=== PATIENT | male | born 1990 | race African-American/Black ===

== ENCOUNTER 2019-05-19 21:21 | Emergency (ER) | payer SELFPAY ==
[2019-05-19] MEDS ORDERED: HYDROCODONE/APAP 5/325 MG TAB ONE (22:13)
[2019-05-19] MEDS ORDERED: IBUPROFEN 200 MG TAB PO ONE (22:13)
[2019-05-19] MEDS ORDERED: IBUPROFEN 400 MG TAB ONE (22:13)
--- NOTE | 2019-05-19 22:26 | RAD REPORT ---
EXAM DESCRIPTION: RAD - Knee Left 3 View - 05/19/2019 10:18 pm CLINICAL HISTORY: PAIN COMPARISON: No comparisons FINDINGS: No fracture or joint effusion is seen.
[2019-05-19] MEDS ORDERED: CEPHALEXIN 250 MG CAP ONE (23:11)
[2019-05-19] MEDS ORDERED: SMZ./TMP. 800/160 MG TABLET ONE (23:12)
--- NOTE | 2019-05-19 23:38 | EDPHYS ---
Physician Documentation [facility] Name: Bryan Tejeda Jr Age: 29 yrs Sex: Male : 1990 Arrival Date: 05/19/2019 Time: 21:25 Bed 23 Private MD: ED Physician Jose Ford HPI: 05/19 22:48 This 29 yrs old Black Male presents to ER via Wheelchair with complaints of Knee Injury.pm1 22:48 The patient presents with an abrasion, pain. The complaints affect the left knee. pm1 Context: The problem was sustained outdoors, resulted from the patient tripping, the patient can fully bear weight, the patient is able to ambulate. Onset: The symptoms/episode began/occurred yesterday. Modifying factors: The symptoms are alleviated by remaining still, the symptoms are aggravated by bending knee. Associated signs and symptoms: Pertinent negatives calf tenderness, fever. Treatment prior to arrival includes: no previous treatment. Severity of symptoms: in the emergency department the symptoms are actually worse. The patient has not recently seen a physician, and does not have an established primary care provider. Patient was running and tripped on gravel with resulting abrasions to bilateral knees and palms of hands. Patient presenting to ER today with complaints of left knee pain. Historical: - Allergies: 22:00 No Known Allergies; cc3 - Home Meds: 22:00 None [Active]; cc3 - PMHx: 22:00 None; cc3 - PSHx: 22:00 None; cc3 - Immunization history:: Adult Immunizations up to date. - Social history:: Smoking status: Patient uses tobacco products, denies chronic smoking, but will smoke occasionally. - Ebola Screening: : No symptoms or risks identified at this time. ROS: 22:48 Constitutional: Negative for fever, chills, and weight loss, Neck: Negative for injury, pm1 pain, and swelling, Cardiovascular: Negative for chest pain, palpitations, and edema, Respiratory: Negative for shortness of breath, cough, wheezing, and pleuritic chest pain, Abdomen/GI: Negative for abdominal pain, nausea, vomiting, diarrhea, and constipation, Back: Negative for injury and pain. 22:48 MS/extremity: Positive for pain, of the left knee, Negative for decreased range of motion, deformity. 22:48 Skin: Positive for abrasion(s), of the left knee, right knee, and palms of both hands. Exam: 22:48 Constitutional: This is a well developed, well nourished patient who is awake, alert, pm1 and in no acute distress. Head/Face: Normocephalic, atraumatic. Neck: Trachea midline, no thyromegaly or masses palpated, and no cervical lymphadenopathy. Supple, full range of motion without nuchal rigidity, or vertebral point tenderness. No Meningismus. Chest/axilla: Normal chest wall appearance and motion. Nontender with no deformity. No lesions are appreciated. Cardiovascular: Regular rate and rhythm with a normal S1 and S2. No gallops, murmurs, or rubs. Normal PMI, no JVD. No pulse deficits. Respiratory: Lungs have equal breath sounds bilaterally, clear to auscultation and percussion. No rales, rhonchi or wheezes noted. No increased work of breathing, no retractions or nasal flaring. Back: No spinal tenderness. No costovertebral tenderness. Full range of motion. 22:48 Musculoskeletal/extremity: Extremities: noted in the left knee: There is no evidence of decreased ROM, deformity, Full passive range of motion. Patient with pain to lower lateral aspec of knee with varus and valgus stress test. Negative drawer test. 22:48 Skin: Appearance: normal except for affected area, injury, abrasion(s), moderate sized abrasion noted, of the left knee. Vital Signs: 21:59 BP 114 / 71 LA (auto/reg); Pulse 63; Resp 18 S; Temp 98.5(O); Pulse Ox 99% on R/A; jp3 Weight 92.99 kg; Height 5 ft. 9 in. (175.26 cm); Pain 10/10; 23:50 BP 112 / 77; Pulse 65; Resp 17 S; Pulse Ox 99% on R/A; cc3 21:59 Body Mass Index 30.27 (92.99 kg, 175.26 cm) 3 MDM: 21:53 Patient medically screened. pm1 23:36 Data reviewed: vital signs. Data interpreted: Pulse oximetry: on room air is 99 %. pm1 Interpretation: normal. Counseling: I had a detailed discussion with the patient and/or guardian regarding: the historical points, exam findings, and any diagnostic results supporting the discharge/admit diagnosis, radiology results, the need for outpatient follow up, a orthopedic surgeon, to return to the emergency department if symptoms worsen or persist or if there are any questions or concerns that arise at home. 23:59 ED course: Patient wants to go home with lisa wrap over knee immobilizer. pm1 05/20 00:00 ED course: Explained to patient impression is mild skin infection from abrasions. Treat pm1 with abx therapy and if symptoms persist post resolution of skin infection, may need evaluation with MRI for ligament injury. 05/19 21:58 Order name: Knee Left 3 View XRAY; Complete Time: 22:31 pm1 05/19 23:05 Order name: Wound Care; Complete Time: 23:56 pm1 05/19 23:05 Order name: Wound dressing; Complete Time: 23:56 pm1 Administered Medications: 05/19 22:15 Drug: [place] 5 mg-325 mg 1 tabs {Note: RASS 0.} Route: PO; [facility] 23:00 Follow up: Response: No adverse reaction; Pain is decreased; RASS: Alert and Calm (0) [facility] 22:15 Drug: Ibuprofen 600 mg Route: PO; 3 23:00 Follow up: Response: No adverse reaction; Pain is decreased; RASS: Alert and Calm (0) [facility] 23:10 Drug: Bactrim (160 mg-800 mg (DS) 1 tablet Route: PO; [facility] 05/20 00:00 Follow up: Response: No adverse reaction [facility] 05/19 23:10 Drug: KeFLEX 500 mg Route: PO; [facility] 05/20 00:00 Follow up: Response: No adverse reaction [facility] Disposition: 05/19/19 23:37 Discharged to Home. Impression: Pain in left knee, Abrasion, left knee. - Condition is Stable. - Discharge Instructions: Abrasion, Elastic Bandage and RICE, Crutch Use, Knee Pain. - Prescriptions for Keflex 500 mg Oral Capsule - take 1 capsule by ORAL route every 12 hours for 10 days; 20 capsule. Tylenol- Codeine #3 300-30 mg Oral Tablet - take 2 tablets by ORAL route every 6 hours As needed; 20 tablet. Bactrim DS 800- 160 mg Oral Tablet - take 1 tablet by ORAL route every 12 hours for 10 days; 20 tablet. - Medication Reconciliation Form, Thank You Letter, Antibiotic Education, Prescription Opioid Use form. - Follow up: Emergency Department; When: As needed; Reason: Worsening of condition. Follow up: Harley Lay MD; When: 2 - 3 days; Reason: Recheck today's complaints, Continuance of care, Re-evaluation by your physician. - Problem is new. - Symptoms have improved. Addendum: 05/22/2019 03:27 Co-signature as Attending Physician, Jose Ford MD. g s Signatures: Dispatcher [employer] EDMS Gabriel Butler, HAND CLOTH CUTTER HAND CLOTH CUTTER pm1 Jose Ford MD MD Altagracia Grier cc3 Corrections: (The following items were deleted from the chart) 05/20 00:01 05/19 23:37 05/19/2019 23:37 Discharged to Home. Impression: Pain in left knee; cc3 Abrasion, left knee. Condition is Stable. Forms are Medication Reconciliation Form, Thank You Letter, Antibiotic Education, Prescription Opioid Use. Follow up: Emergency Department; When: As needed; Reason: Worsening of condition. Follow up: Harley Lay; When: 2 - 3 days; Reason: Recheck today's complaints, Continuance of care, Re-evaluation by your physician. Problem is new. Symptoms have improved. pm1
--- NOTE | 2019-05-19 23:38 | ER ---
Nurse's Notes [facility] Name: Bryan Tejeda Jr Age: 29 yrs Sex: Male : 1990 Arrival Date: 05/19/2019 Time: 21:25 Bed 23 Private MD: Diagnosis: Pain in left knee;Abrasion, left knee Presentation: 05/19 22:00 Presenting complaint: Patient states: "I was playing water balloon fight yesterday cc3 afternoon and I hit both my knees on the ground but the left knee hurts more and more swollen than the right knee". Patient sustained superficial abrasions on bilateral knees. Transition of care: patient was not received from another setting of care. Onset of symptoms was May 19, 2019. Risk Assessment: Do you want to hurt yourself or someone else? Patient reports no desire to harm self or others. Initial Sepsis Screen: Does the patient meet any 2 criteria? No. Patient's initial sepsis screen is negative. Does the patient have a suspected source of infection? No. Patient's initial sepsis screen is negative. Care prior to arrival: None. 22:00 Method Of Arrival: Wheelchair cc3 22:00 Acuity: OMAR 3 cc3 Triage Assessment: 22:00 General: Appears in no apparent distress. uncomfortable, Behavior is calm, cooperative, cc3 appropriate for age. Pain: Complains of pain in bilateral knees but mostly on the left Quality of pain is described as aching. EENT: No signs and/or symptoms were reported regarding the EENT system. Neuro: Level of Consciousness is awake, alert, obeys commands, Oriented to person, place, time, situation, Appropriate for age. Cardiovascular: Denies chest pain, Capillary refill < 3 seconds Patient's skin is warm and dry. Respiratory: Airway is patent Respiratory effort is even, unlabored, Respiratory pattern is regular, symmetrical. GI: Abdomen is round non-distended. : No signs and/or symptoms were reported regarding the genitourinary system. Derm: Skin is intact, is healthy with good turgor, Skin is normal, black, abrasion on bilateral knees, swelling on left knee. Musculoskeletal: Circulation, motion, and sensation intact. Range of motion: limited in left knee Swelling present in left knee. Injury Description: Abrasion sustained to bilateral knees was sustained yesterday. Historical: - Allergies: 22:00 No Known Allergies; cc3 - Home Meds: 22:00 None [Active]; cc3 - PMHx: 22:00 None; cc3 - PSHx: 22:00 None; cc3 - Immunization history:: Adult Immunizations up to date. - Social history:: Smoking status: Patient uses tobacco products, denies chronic smoking, but will smoke occasionally. - Ebola Screening: : No symptoms or risks identified at this time. Screenin:00 Abuse screen: Denies threats or abuse. Denies injuries from another. Nutritional cc3 screening: No deficits noted. Tuberculosis screening: No symptoms or risk factors identified. Fall Risk Ambulatory Aid- None/Bed Rest/Nurse Assist (0 pts). Gait- Normal/Bed Rest/Wheelchair (0 pts) Mental Status- Oriented to own ability (0 pts). Assessment: 22:00 General: see triage assessment. cc3 23:18 Reassessment: Patient appears in no apparent distress at this time. Patient and/or cc3 family updated on plan of care and expected duration. Pain level reassessed. Patient is alert, oriented x 3, equal unlabored respirations, skin warm/dry/pink. 05/20 00:00 Reassessment: Patient appears in no apparent distress at this time. Patient and/or cc3 family updated on plan of care and expected duration. Pain level reassessed. Patient is alert, oriented x 3, equal unlabored respirations, skin warm/dry/pink. LINE CLEARANCE FOREMAN Luke discharged the patient home with prescriptions given. No IV cannula in situ. Patient left ER vitally stable and ambulatory on his own pair of crutches with his relative. No valuables left in the patient's room. Patient denies pain at this time. Patient states feeling better. Patient states symptoms have improved. Vital Signs: 05/19 21:59 BP 114 / 71 LA (auto/reg); Pulse 63; Resp 18 S; Temp 98.5(O); Pulse Ox 99% on R/A; jp3 Weight 92.99 kg; Height 5 ft. 9 in. (175.26 cm); Pain 10/10; 23:50 BP 112 / 77; Pulse 65; Resp 17 S; Pulse Ox 99% on R/A; cc3 21:59 Body Mass Index 30.27 (92.99 kg, 175.26 cm) 3 ED Course: 21:25 Patient arrived in ED. cl3 21:47 aGbriel Butler NP is PHCP. pm1 21:47 Jose Ford MD is Attending Physician. pm1 22:00 Bed in low position. Call light in reach. Side rails up X 1. Warm blanket given. Verbal jp3 reassurance given. PT wounded leg was elevated following assisting PT into bed. Pulse ox on. NIBP on. 22:00 Arm band placed on right wrist. Patient notified of wait time. cc3 22:01 Patient maintains SpO2 saturation greater than 95% on room air. jp3 22:08 Altagracia Grier is Primary Nurse. cc3 22:17 Knee Left 3 View XRAY In Process Unspecified. EDMS 22:18 Triage completed. cc3 23:37 Harley Lay MD is Referral Physician. pm1 05/20 00:00 No provider procedures requiring assistance completed. Patient did not have IV access cc3 during this emergency room visit. 00:09 Dressings: non-adherent dressing x 2 left knee. Albert wrap to left knee. Wound care: to jp3 abrasion, located on left knee was cleaned with Hibiclens, debrided using Betadine scrub, irrigated with normal saline, dressed with Neosporin. Administered Medications: 05/19 22:15 Drug: [place] 5 mg-325 mg 1 tabs {Note: RASS 0.} Route: PO; cc3 23:00 Follow up: Response: No adverse reaction; Pain is decreased; RASS: Alert and Calm (0) cc3 22:15 Drug: Ibuprofen 600 mg Route: PO; cc3 23:00 Follow up: Response: No adverse reaction; Pain is decreased; RASS: Alert and Calm (0) cc3 23:10 Drug: Bactrim (160 mg-800 mg (DS) 1 tablet Route: PO; cc3 05/20 00:00 Follow up: Response: No adverse reaction cc3 05/19 23:10 Drug: KeFLEX 500 mg Route: PO; cc3 05/20 00:00 Follow up: Response: No adverse reaction cc3 Outcome: 05/19 23:37 Discharge ordered by . pm1 05/20 00:00 Discharged to home ambulatory, with crutches, with family. cc3 Condition: stable Discharge instructions given to patient, Instructed on discharge instructions, follow up and referral plans. medication usage, Demonstrated understanding of instructions, follow-up care, medications, Prescriptions given X 3. 00:01 Patient left the ED. cc3 Signatures: Dispatcher [employer] EDMS Gabriel Butler, LINE CLEARANCE FOREMAN LINE CLEARANCE FOREMAN pm1 Gerardo Couch jp3 Altagracia Grier cc3 Yisel Grande cl3 Corrections: (The following items were deleted from the chart) 05/19 22:26 22:00 Presenting complaint: Patient states: "I was playing water balloon fight and I cc3 hit both my knees on the ground but the left knee hurts more and more swollen than the right knee". Patient sustained superficial abrasions on bilateral knees. cc3
== END 2019-05-20 00:01 | disposition home or self-care (01) ==
LOC: ER 21:21
DX: S80.212A Abrasion, left knee, initial encounter (principal); M25.562 Pain in left knee; W01.0XXA Fall on same level from slipping, tripping and stumbling without subsequent striking against object, initial encounter; Y93.02 Activity, running
CPT/HCPCS: 99284

== ENCOUNTER 2020-06-28 23:42 | Emergency (ER) | payer SELFPAY ==
[2020-06-29] MEDS ORDERED: METOCLOPRAMIDE 10 MG/2mL INJ ONE (00:26)
[2020-06-29] MEDS ORDERED: NA CHLORIDE 0.9% 1,000 ML ONE (00:26)
[2020-06-29] MEDS ORDERED: DIPHENHYDRAMINE 50 MG/ML VIAL ONE (00:26)
[2020-06-29 00:44] LABS: Basophils % 0.2 % (0-1.3); Hematocrit 36.5 % (39.6-49.0); Lymphocytes % 31.3 % (15.3-44.8); MPV 9.9 fL (7.6-11.3); RBC Red Blood Cell Count 4.17 M/uL (4.33-5.43)
[2020-06-29 00:45] LABS: Protime INR 1.01
[2020-06-29] MEDS ORDERED: LORazepam 2 MG/ML VIAL ONE (00:52)
[2020-06-29 00:59] LABS: ALT/SGPT 21 U/L (12-78); AST/SGOT 14 U/L (15-37); Albumin 3.7 g/dL (3.4-5.0); Alkaline Phosphatase 55 U/L (45-117); BUN Blood Urea Nitrogen 14 mg/dL (7-18); Bicarbonate 24 mmol/L (21-32); Bilirubin Direct < 0.1 mg/dL (0-0.2); Bilirubin Total 0.2 mg/dL (0.2-1.0); Glucose Level 106 mg/dL (74-106); Potassium 3.4 mmol/L (3.5-5.1); Protein, Total 7.1 g/dL (6.4-8.2); Sodium Level 141 mmol/L (136-145)
--- NOTE | 2020-06-29 02:25 | EDPHYS ---
Physician Documentation [facility] Name: Bryan Tejeda Jr Age: 30 yrs Sex: Male : 1990 Arrival Date: 06/28/2020 Time: 23:45 Bed 7 Private MD: ED Physician Amaury Blas HPI: 06/29 00:15 This 30 yrs old Black Male presents to ER via Ambulatory with complaints of Headache, mh7 Worst Ever, Dizziness, Lightheaded. 00:16 The patient complains of pain to the top of head. The patient describes the headache as mh7 constant, throbbing. Onset: The symptoms/episode began/occurred just prior to arrival, today. Associated signs and symptoms: Pertinent positives: dizziness, Photophobia Pertinent negatives: altered mental status, fever, malaise, nausea, neck stiffness, paresthesias, rash, sinus congestion, sinus tenderness, vision changes, vision loss, vomiting, weakness, vertigo. Severity of symptoms: At its worst the pain was severe, just prior to arrival, earlier today, the "worst in my life", in the emergency department the pain. 00:19 Severity of symptoms: in the emergency department the pain has improved, mildly. mh7 Headache History: The patient has had previous headaches and this one is less severe than previous episodes. The symptoms are alleviated by Darkened room, quiet, the symptoms are aggravated by lights, noise. The patient has experienced similar episodes in the past, chronically, 4-5 times per month for the two or more years. Historical: - Allergies: 06/28 23:56 No Known Allergies; bb - Home Meds: 23:56 None [Active]; bb - PMHx: 23:56 None; bb - PSHx: 23:56 None; bb - Immunization history:: Adult Immunizations up to date. - Social history:: Smoking status: Patient reports the use of cigarette tobacco products, cigars, Patient uses alcohol, occasionally. street drugs, marijuana. ROS: 06/29 00:19 Constitutional: Negative for fever, chills, and weight loss, Eyes: Negative for injury, mh7 pain, redness, and discharge, ENT: Negative for injury, pain, and discharge, Neck: Negative for injury, pain, and swelling, Cardiovascular: Negative for chest pain, palpitations, and edema, Respiratory: Negative for shortness of breath, cough, wheezing, and pleuritic chest pain, Abdomen/GI: Negative for abdominal pain, nausea, vomiting, diarrhea, and constipation, Back: Negative for injury and pain, : Negative for injury, bleeding, discharge, and swelling, MS/Extremity: Negative for injury and deformity, Skin: Negative for injury, rash, and discoloration, Psych: Negative for depression, anxiety, suicide ideation, homicidal ideation, and hallucinations, Allergy/Immunology: Negative for hives, rash, and allergies, Endocrine: Negative for neck swelling, polydipsia, polyuria, polyphagia, and marked weight changes, Hematologic/Lymphatic: Negative for swollen nodes, abnormal bleeding, and unusual bruising. Exam: 00:19 Head/Face: Normocephalic, atraumatic. Eyes: Pupils equal round and reactive to light, mh7 extra-ocular motions intact. Lids and lashes normal. Conjunctiva and sclera are non-icteric and not injected. Cornea within normal limits. Periorbital areas with no swelling, redness, or edema. ENT: Nares patent. No nasal discharge, no septal abnormalities noted. Tympanic membranes are normal and external auditory canals are clear. Oropharynx with no redness, swelling, or masses, exudates, or evidence of obstruction, uvula midline. Mucous membranes moist. Neck: Trachea midline, no thyromegaly or masses palpated, and no cervical lymphadenopathy. Supple, full range of motion without nuchal rigidity, or vertebral point tenderness. No Meningismus. Chest/axilla: Normal chest wall appearance and motion. Nontender with no deformity. No lesions are appreciated. Cardiovascular: Regular rate and rhythm with a normal S1 and S2. No gallops, murmurs, or rubs. Normal PMI, no JVD. No pulse deficits. Respiratory: Lungs have equal breath sounds bilaterally, clear to auscultation and percussion. No rales, rhonchi or wheezes noted. No increased work of breathing, no retractions or nasal flaring. Abdomen/GI: Soft, non-tender, with normal bowel sounds. No distension or tympany. No guarding or rebound. No evidence of tenderness throughout. Back: No spinal tenderness. No costovertebral tenderness. Full range of motion. Skin: Warm, dry with normal turgor. Normal color with no rashes, no lesions, and no evidence of cellulitis. MS/ Extremity: Pulses equal, no cyanosis. Neurovascular intact. Full, normal range of motion. Neuro: Awake and alert, GCS 15, oriented to person, place, time, and situation. Cranial nerves II-XII grossly intact. Motor strength 5/5 in all extremities. Sensory grossly intact. Cerebellar exam normal. Normal gait. Psych: Awake, alert, with orientation to person, place and time. Behavior, mood, and affect are within normal limits. 00:19 Constitutional: The patient appears in no acute distress, alert, awake, uncomfortable. Vital Signs: 06/28 23:54 BP 123 / 74; Pulse 58; Resp 14 S; Temp 97.8(O); Pulse Ox 99% on R/A; Weight 88.45 kg bb (R); Height 5 ft. 9 in. (175.26 cm) (R); Pain 9/10; 06/29 02:15 BP 115 / 78; Pulse 60; Resp 18; Temp 98; Pulse Ox 100% on R/A; Pain 0/10; jb4 06/28 23:54 Body Mass Index 28.80 (88.45 kg, 175.26 cm) bb [place] Coma Score: 02:23 Eye Response: spontaneous(4). Verbal Response: oriented(5). Motor Response: obeys mh7 commands(6). Total: 15. MDM: 00:02 Patient medically screened. mh7 02:23 Differential diagnosis: cluster headache, hypoglycemia, intracerebral hemorrhage, mh7 migraine, subarachnoid bleed, tension headache. Data reviewed: vital signs, nurses notes, lab test result(s), CBC, electrolytes, EKG. Data interpreted: Pulse oximetry: on room air is 99 %. Interpretation: normal. Counseling: I had a detailed discussion with the patient and/or guardian regarding: lab results. Response to treatment: the patient's symptoms have resolved after treatment, the patient's blood pressure is in an acceptable range, mental status has returned to baseline, the patient no longer shows bradycardia, the patient is not short of breath, the patient is not tachycardic, the patient's pain is gone, the patient's temperature has normalized. Refusal of service: The patient/guardian displays adequate decision making capability and despite a detailed discussion of alternatives, benefits, risks, and consequences refuses: CT Scan, Lumbar Puncture procedure. 06:18 ED course: NAD, VSS, no focal neurological deficits. No headache, nausea, vomiting, mh7 dizziness. Patient refused CT head, possible spinal tap, and any further care or evaluation to rule out TELESALES SPECIALIST problem. He decided to leave against medical advice. Explained the possibility of permanent disability and/or if serious condition is present and goes untreated and undiagnosed. He verbalized that he understood this information as presented. He has a normal mental status and neurological exam. He knows that he can return to the ED with any concerns.. 06/29 00:04 Order name: CBC with Diff; Complete Time: 00:49 7 06/29 00:04 Order name: Basic Metabolic Panel; Complete Time: 01: 7 06/29 00:04 Order name: Protime (+inr); Complete Time: 01:08 7 06/29 00:04 Order name: Ptt, Activated; Complete Time: 01:08 [facility] 06/29 00:04 Order name: LFT's; Complete Time: 01: [facility] 06/29 00:37 Order name: EKG - Nurse/Tech; Complete Time: 00:55 mh7 Administered Medications: 00:19 Drug: Benadryl 50 mg Route: IVP; Site: right forearm; mg2 01:00 Follow up: patient became shaky and anxious with this medicine mg2 00:20 Drug: NS 0.9% 1000 ml Route: IV; Rate: 1000 ml; Site: right forearm; mg2 02:00 Follow up: Response: No adverse reaction; IV Status: Completed infusion; IV Intake: mg2 1000ml 00:20 Drug: Reglan 10 mg Route: IVP; Site: right forearm; mg2 02:00 Follow up: Response: No adverse reaction mg2 00:42 Drug: Ativan 0.5 mg Route: IVP; Site: right forearm; mg2 00:55 Follow up: Response: No adverse reaction; Anxiety unchanged mg2 00:55 Drug: Ativan 0.5 mg Route: IVP; Site: right forearm; mg2 01:15 Follow up: Response: No adverse reaction; Anxiety unchanged mg2 Disposition: 06/29/20 02:25 Patient has left against medical advice. - Patients states they are going to Home. - Condition is Stable. Signatures: [facility] Cherrie Baldwin RN RN Devon Kumar, RN RN jb4 Ga Olson, RN RN mg2 Amaury Blas MD MD mh7
--- NOTE | 2020-06-29 02:25 | ER ---
Nurse's Notes [facility] Name: rByan Tejeda Jr Age: 30 yrs Sex: Male : 1990 Arrival Date: 06/28/2020 Time: 23:45 Bed 7 Private MD: Diagnosis: Presentation: 06/28 23:54 Chief complaint: Patient states: he has been having headaches for approx 2 years now bb but tonight his headache is the worst one yet tylenol doesn't help and he usually has to go to sleep to get rid of it also he is photophobic. Coronavirus screen: At this time, the client does not indicate any symptoms associated with coronavirus-19. Ebola Screen: No symptoms or risks identified at this time. Initial Sepsis Screen: Does the patient meet any 2 criteria? No. Patient's initial sepsis screen is negative. Does the patient have a suspected source of infection? No. Patient's initial sepsis screen is negative. Risk Assessment: Do you want to hurt yourself or someone else? Patient reports no desire to harm self or others. Onset of symptoms was June 28, 2020. 23:54 Method Of Arrival: Ambulatory bb 23:54 Acuity: OMAR 2 bb Triage Assessment: 23:56 Headache History: The patient has had previous headaches and this one is more severe bb than previous episodes. General: Appears uncomfortable, Behavior is calm, cooperative. Pain: Complains of pain in head Pain currently is 9 out of 10 on a pain scale. Pain began suddenly, Also complains of photophobia. Neuro: Level of Consciousness is awake, alert, obeys commands, Oriented to person, place, time, situation. Historical: - Allergies: 23:56 No Known Allergies; bb - Home Meds: 23:56 None [Active]; bb - PMHx: 23:56 None; bb - PSHx: 23:56 None; bb - Immunization history:: Adult Immunizations up to date. - Social history:: Smoking status: Patient reports the use of cigarette tobacco products, cigars, Patient uses alcohol, occasionally. street drugs, marijuana. Screenin/21 00:21 Abuse screen: Denies threats or abuse. Denies injuries from another. Nutritional mg2 screening: No deficits noted. Tuberculosis screening: No symptoms or risk factors identified. Fall Risk IV access (20 points). Assessment: 00:20 General: Appears in no apparent distress. comfortable, Behavior is calm, cooperative. mg2 Pain: Complains of pain in top of head Pain currently is 9 out of 10 on a pain scale. Quality of pain is described as aching. Neuro: Level of Consciousness is awake, alert, obeys commands, Oriented to person, place, time, situation. Neuro: Reports headache. Cardiovascular: Capillary refill < 3 seconds Patient's skin is warm and dry. Respiratory: Airway is patent Respiratory effort is even, unlabored, Respiratory pattern is regular, symmetrical. GI: No signs and/or symptoms were reported involving the gastrointestinal system. : No signs and/or symptoms were reported regarding the genitourinary system. EENT: No signs and/or symptoms were reported regarding the EENT system. Derm: Skin is intact, is healthy with good turgor, Skin is pink, warm \T\ dry. normal. Musculoskeletal: Circulation, motion, and sensation intact. Capillary refill < 3 seconds. 00:42 Reassessment: patient was so anxious during the ct procedure. director sales support brought back the mg2 patient to ED without starting the exam. provider informed. 02:06 Reassessment: patient wants to go home against medical advice. he wants to rest at home jb4 because he is still feeling anxious from the medicine. 02:23 Reassessment: patient signed AMA. he wants to rest at home. risk explained and jb4 understood by him. Vital Signs: 06/28 23:54 BP 123 / 74; Pulse 58; Resp 14 S; Temp 97.8(O); Pulse Ox 99% on R/A; Weight 88.45 kg bb (R); Height 5 ft. 9 in. (175.26 cm) (R); Pain 9/10; 06/29 02:15 BP 115 / 78; Pulse 60; Resp 18; Temp 98; Pulse Ox 100% on R/A; Pain 0/10; jb4 06/28 23:54 Body Mass Index 28.80 (88.45 kg, 175.26 cm) bb Gaston Coma Score: 02:23 Eye Response: spontaneous(4). Verbal Response: oriented(5). Motor Response: obeys mh7 commands(6). Total: 15. ED Course: 06/28 23:45 Patient arrived in ED. bp1 23:49 Amaury Blas MD is Attending Physician. mh7 23:50 Ga Olson, RN is Primary Nurse. mg2 23:56 Triage completed. bb 23:56 Arm band placed on Patient placed in an exam room, on a stretcher, on pulse oximetry. bb 09 00:13 No provider procedures requiring assistance completed. Inserted saline lock: 20 gauge mg2 in right antecubital area, using aseptic technique. 00:21 Patient has correct armband on for positive identification. mg2 00:41 Radiology exam delayed due to Unable to lie still for the CT Head exam. Feels like he kw1 may be having a panic attack. Spoke with Dr. Blas who has ordered Ativan. 00:55 Radiology exam delayed due to Patient is still unable to come to the CT Dept. for his kw1 exam. Is being given a 2nd dose of Ativan so he can tolerate the exam. To do exam at 0100. 01:05 Radiology exam delayed due to Still unable to come to the CT Dept. for his exam. Spoke kw1 with Dr. Blas who will reassess the patient. The attending nurse (Patricia Olson, MIRNA) will advise me when and if we can do the exam. 02:24 IV discontinued, intact, bleeding controlled, No redness/swelling at site. Pressure jb4 dressing applied. Administered Medications: 00:19 Drug: Benadryl 50 mg Route: IVP; Site: right forearm; mg2 01:00 Follow up: patient became shaky and anxious with this medicine mg2 00:20 Drug: NS 0.9% 1000 ml Route: IV; Rate: 1000 ml; Site: right forearm; mg2 02:00 Follow up: Response: No adverse reaction; IV Status: Completed infusion; IV Intake: mg2 1000ml 00:20 Drug: Reglan 10 mg Route: IVP; Site: right forearm; mg2 02:00 Follow up: Response: No adverse reaction mg2 00:42 Drug: Ativan 0.5 mg Route: IVP; Site: right forearm; mg2 00:55 Follow up: Response: No adverse reaction; Anxiety unchanged mg2 00:55 Drug: Ativan 0.5 mg Route: IVP; Site: right forearm; mg2 01:15 Follow up: Response: No adverse reaction; Anxiety unchanged mg2 Intake: 02:00 IV: 1000ml; Total: 1000ml. mg2 Outcome: 02:24 AMA AMA form signed jb4 02:24 Condition: stable 02:24 Instructed on discharge instructions, Demonstrated understanding of instructions. 02:25 Patient left the ED. jb4 Signatures: Cherrie Baldwin RN RN bb Devon Maynard RN RN jb4 Shawnee Salcido kw1 Ga Olson RN RN mg2 Aliza Wallace Maurice, MD MD mh7
[2020-06-29 02:33] VITALS: BP 115/78; TEMP 98; O2SAT 100
== END 2020-06-29 02:25 | disposition left against medical advice (07) ==
LOC: ER 23:42
DX: R51 Headache (principal); Z53.21 Procedure and treatment not carried out due to patient leaving prior to being seen by health care provider
CPT/HCPCS: 36415; 80048; 80076; 85025; 85610; 85730; 93005; 96361; 96374; 96375; 99283; J1200; J2765; J7030

== ENCOUNTER 2021-02-28 17:52 | Emergency (ER) | payer SELFPAY ==
--- NOTE | 2021-02-28 19:08 | RAD REPORT ---
EXAM DESCRIPTION: RAD - Wrist Left 3 View - 02/28/2021 6:46 pm CLINICAL HISTORY: Left wrist pain status post injury FINDINGS: No fracture or dislocation is seen. If the patient continues to have symptoms to suggest an occult fracture then a followup plain film se alexis in 7 days would be recommended
[2021-02-28] MEDS ORDERED: IBUPROFEN 400 MG TAB ONE (19:11)
[2021-02-28] MEDS ORDERED: ACETAMINOPHEN 500 MG TAB ONE (19:11)
--- NOTE | 2021-02-28 19:25 | ER ---
Nurse's Notes [facility] Name: Bryan Tejeda Jr Age: 30 yrs Sex: Male : 1990 Arrival Date: 02/28/2021 Time: 17:54 Bed 7 Private MD: Diagnosis: Other and unspecified sprain of wrist-left Presentation: 02/28 18:14 Chief complaint: Patient states: Pt states he fell on his left wrist while playing ae4 football the previous day. Coronavirus screen: Client denies travel out of the [place] in the last 14 days. At this time, the client does not indicate any symptoms associated with coronavirus-19. Ebola Screen: Patient denies exposure to infectious person. Patient denies travel to an Ebola-affected area in the 21 days before illness onset. No symptoms or risks identified at this time. Initial Sepsis Screen: Does the patient meet any 2 criteria? No. Patient's initial sepsis screen is negative. Risk Assessment: Do you want to hurt yourself or someone else? Patient reports no desire to harm self or others. 18:14 Method Of Arrival: Ambulatory ae4 18:14 Acuity: OMAR 4 ae4 Triage Assessment: 18:17 General: Appears in no apparent distress. comfortable, Behavior is calm, cooperative. ae4 Pain: Complains of pain in left hand. Neuro: Level of Consciousness is awake, alert, obeys commands. Respiratory: Airway is patent Respiratory effort is even, unlabored, Respiratory pattern is regular, symmetrical. Musculoskeletal: Swelling present in left hand and left wrist. Injury Description: Pt states he fell on his left wrist. Historical: - Allergies: 18:17 Benadryl; ae4 - Home Meds: 18:17 None [Active]; ae4 - PMHx: 18:17 None; ae4 - PSHx: 18:17 None; ae4 - Immunization history:: Adult Immunizations up to date, Client reports having NOT received the Covid vaccine. - Social history:: Smoking status: Patient reports the use of cigarette tobacco products, smokes one-half pack cigarettes per day. Screenin:21 Abuse screen: Denies threats or abuse. Nutritional screening: No deficits noted. em Tuberculosis screening: No symptoms or risk factors identified. Fall Risk None identified. Assessment: 18:52 General: Appears in no apparent distress. comfortable, Behavior is calm, cooperative, em appropriate for age. Pain: Complains of pain in left wrist Pain currently is 10 out of 10 on a pain scale. Neuro: Level of Consciousness is awake, alert, obeys commands, Oriented to person, place, time, situation. Cardiovascular: Capillary refill < 3 seconds Patient's skin is warm and dry. Respiratory: Airway is patent Respiratory effort is even, unlabored, Respiratory pattern is regular, symmetrical. Derm: Skin is intact, is healthy with good turgor, Skin is clammy. Musculoskeletal: Capillary refill < 3 seconds, Range of motion: limited in left wrist Swelling present in left wrist. 19:05 Reassessment: Patient appears in no apparent distress at this time. Patient and/or jb4 family updated on plan of care and expected duration. Pain level reassessed. Patient is alert, oriented x 3, equal unlabored respirations, skin warm/dry/pink. Vital Signs: 18:14 BP 117 / 65; Pulse 76; Resp 18; Temp 97.8; Pulse Ox 96% on R/A; Weight 98.88 kg (R); ae4 Height 5 ft. 9 in. (175.26 cm); Pain 10/10; 19:05 BP 125 / 75; Pulse 61; Resp 18; Pulse Ox 97% on R/A; jb4 18:14 Body Mass Index 32.19 (98.88 kg, 175.26 cm) ae4 ED Course: 17:54 Patient arrived in ED. ds1 18:09 Dionte Torres PA is PHCP. cp 18:09 Ector Hernandez MD is Attending Physician. cp 18:16 Triage completed. ae4 18:17 Vadim Mills, RN is Primary Nurse. em 18:19 Arm band placed on right wrist. ae4 18:21 Patient has correct armband on for positive identification. em 18:46 XRAY Wrist LEFT 3 view In Process Unspecified. EDMS 19:05 No provider procedures requiring assistance completed. Patient did not have IV access jb4 during this emergency room visit. 19:24 Baltazar Trujillo MD is Referral Physician. cp Administered Medications: 18:55 Drug: Ibuprofen 800 mg Route: PO; em 19:31 Follow up: Response: No adverse reaction; Marked relief of symptoms; Pain is decreased jb4 18:55 Drug: Tylenol 1000 mg Route: PO; em 19:31 Follow up: Response: No adverse reaction; Marked relief of symptoms; Pain is decreased jb4 Outcome: 19:24 Discharge ordered by . dewey 19:30 Discharged to home ambulatory. jb4 19:30 Condition: stable 19:30 Discharge instructions given to patient, Instructed on discharge instructions, follow up and referral plans. medication usage, Demonstrated understanding of instructions, follow-up care, medications, Prescriptions given X 1. 19:31 Patient left the ED. jb4 Signatures: Dispatcher [employer] Vadim Madrigal, RN RN Edith Granados ds1 Dionte Torres PA PA cp Bryson, James, RN RN jb4 Fracisco Trinidad RN RN ae4
--- NOTE | 2021-02-28 19:25 | EDPHYS ---
Physician Documentation [facility] Name: Bryan Tejeda Jr Age: 30 yrs Sex: Male : 1990 Arrival Date: 02/28/2021 Time: 17:54 Bed 7 Private MD: ED Physician Ector Hernandez HPI: 02/28 18:30 This 30 yrs old Black Male presents to ER via Ambulatory with complaints of Wrist cp Injury. 18:30 The patient or guardian reports injury, pain, swelling, tenderness, painful ROM. The cp complaints affect the left wrist diffusely. 18:30 Context: resulted from playing sports, football, another player landed on wrist and cp then twisted causing injury. Onset: The symptoms/episode began/occurred yesterday. 18:30 Modifying factors: the symptoms are aggravated by movement. Associated signs and cp symptoms: Pertinent negatives: cyanosis distally, numbness distally. Historical: - Allergies: 18:17 Benadryl; ae4 - Home Meds: 18:17 None [Active]; ae4 - PMHx: 18:17 None; ae4 - PSHx: 18:17 None; ae4 - Immunization history:: Adult Immunizations up to date, Client reports having NOT received the Covid vaccine. - Social history:: Smoking status: Patient reports the use of cigarette tobacco products, smokes one-half pack cigarettes per day. ROS: 18:35 MS/extremity: Positive for injury or acute deformity, pain, swelling, tenderness, of cp the left wrist, painful ROM, Negative for paresthesias. 18:35 Constitutional: Negative for body aches, chills, fever. cp 18:35 Neck: Negative for pain with movement, pain at rest, stiffness. 18:35 Back: Negative for pain at rest, pain with movement. 18:35 Skin: Negative for rash. 18:35 All other systems are negative. Exam: 18:40 Constitutional: The patient appears in no acute distress, alert, awake, well developed, cp well nourished, uncomfortable. 18:40 Hand exam: Exam is positive for swelling, tenderness, ROM: limited active range of cp motion due to pain, in the left wrist, limited passive range of motion due to pain, in the left wrist, Perfusion: the extremity is normally perfused throughout, sensation intact. Joints: the left wrist displays general swelling. 18:40 Head/Face: Normocephalic, atraumatic. Vital Signs: 18:14 BP 117 / 65; Pulse 76; Resp 18; Temp 97.8; Pulse Ox 96% on R/A; Weight 98.88 kg (R); ae4 Height 5 ft. 9 in. (175.26 cm); Pain 10/10; 19:05 BP 125 / 75; Pulse 61; Resp 18; Pulse Ox 97% on R/A; jb4 18:14 Body Mass Index 32.19 (98.88 kg, 175.26 cm) ae4 Procedures: 19:30 Splinting: Splint applied to left wrist using wrist splint, applied by nurse. Examined cp by me, post splint application: neurovascular intact. MDM: 18:20 Patient medically screened. cp 19:00 Differential diagnosis: dislocation, closed fracture, contusion, sprain. cp 19:08 Test interpretation: by ED physician or midlevel provider: xrays of left wrist negative cp for fracture. 19:23 Data reviewed: vital signs, nurses notes, radiologic studies, plain films. cp 19:23 Counseling: I had a detailed discussion with the patient and/or guardian regarding: the cp historical points, exam findings, and any diagnostic results supporting the discharge/admit diagnosis, radiology results, to return to the emergency department if symptoms worsen or persist or if there are any questions or concerns that arise at home. Response to treatment: the patient's symptoms have markedly improved after treatment. 02/28 18:28 Order name: XRAY Wrist LEFT 3 view; Complete Time: 19:14 cp 02/28 19:14 Interpretation: Report reviewed. 02/28 19:07 Order name: Splint - Wrist; Complete Time: 19:19 cp Administered Medications: 18:55 Drug: Ibuprofen 800 mg Route: PO; em 19:31 Follow up: Response: No adverse reaction; Marked relief of symptoms; Pain is decreased jb4 18:55 Drug: Tylenol 1000 mg Route: PO; em 19:31 Follow up: Response: No adverse reaction; Marked relief of symptoms; Pain is decreased jb4 Disposition: 19:30 Chart complete. cp Disposition: 02/28/21 19:24 Discharged to Home. Impression: Other and unspecified sprain of wrist - left. - Condition is Stable. - Discharge Instructions: Wrist Sprain. - Prescriptions for Naprosyn 500 mg Oral Tablet - take 1 tablet by ORAL route 2 times per day take with food; 20 tablet. - Medication Reconciliation Form, Thank You Letter, Antibiotic Education, Prescription Opioid Use form. - Follow up: Baltazar Trujillo MD; When: 1 week; Reason: Recheck today's complaints. - Problem is new. - Symptoms have improved. Addendum: 03/04/2021 07:00 Co-signature as Attending Physician, Ector Hernandez MD. m a2 Signatures: Dispatcher [employer] EDMS Vadim Mills, RN RN em Dionte Torres PA PA cp Devon Maynard RN RN jb4 Ector Hernandez MD MD ma2 Fracisco Trinidad RN RN ae4 Corrections: (The following items were deleted from the chart) 02/28 19:31 19:24 02/28/2021 19:24 Discharged to Home. Impression: Other and unspecified sprain of jb4 wrist - left. Condition is Stable. Forms are Medication Reconciliation Form, Thank You Letter, Antibiotic Education, Prescription Opioid Use. Follow up: Baltazar Trujillo; When: 1 week; Reason: Recheck today's complaints. Problem is new. Symptoms have improved. cp
[2021-02-28 19:54] VITALS: TEMP 97.8
[2021-02-28 19:56] VITALS: BP 125/75; O2SAT 97
== END 2021-02-28 19:31 | disposition home or self-care (01) ==
LOC: ER 17:52
DX: S63.592A Other specified sprain of left wrist, initial encounter (principal); W50.0XXA Accidental hit or strike by another person, initial encounter; Y93.61 Activity, american tackle football; F17.210 Nicotine dependence, cigarettes, uncomplicated; Z88.8 Allergy status to other drugs, medicaments and biological substances
CPT/HCPCS: 99283

== ENCOUNTER 2022-12-20 13:06 | Emergency (ER) | payer OTHER ==
--- OUTSIDE RECORDS SUMMARY | 2022-12-20 13:11 | XMS REPORT | Continuity of Care Document ---
:1990 Author Organization [facility] t Address [address] [place] [address] Care Team Providers Name Role Phone CHRETIEN_F Attending Clinician Unavailable CHRETIEN_F Admitting Clinician Unavailable Payers Payer Name Policy Type Policy Number Effective Date Expiration Date [facility] [id number] Problems This patient has no known problems. Allergies, Adverse Reactions, Alerts This patient has no known allergies or adverse reactions. Medications This patient has no known medications. Procedures This patient has no known procedures. Encounters Start End Encounter Admission Attending Care Care Encounter Source Date/Time Date/Time Type Type Clinicians Facility Department ID 2022-09-19 2022-09-19 Outpatient CHRETIEN_F [facility] [address] 00:00:00 00:00:00 [facility] Results This patient has no known results.
[2022-12-20 14:04] LABS: MPV 8.7 fL (7.6-11.3)
--- NOTE | 2022-12-20 14:29 | RAD REPORT ---
EXAM DESCRIPTION: Janet Single View12/20/2022 2:00 pm CLINICAL HISTORY: Chest pain COMPARISON: none FINDINGS: The lungs appear clear of acute infiltrate. The heart is normal size IMPRESSION: No acute abnormalities displayed
--- NOTE | 2022-12-20 14:55 | EDPHYS ---
Physician Documentation [facility] Name: Bryan Tejeda Jr Age: 32 yrs Sex: Male : 1990 Arrival Date: 12/20/2022 Time: 13:10 Bed 15 Private MD: ED Physician Tyrone Morocho HPI: 12/20 13:24 This 32 yrs old Black Male presents to ER via Ambulatory with complaints of Hand Pain, bs3 Chest Pain, Bloody Stools. 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 Second he notes chest pain for approximately 2 months it is the left side it usually occurs when he gets home from work denies any exertional symptoms denies any associated nausea vomiting or diaphoresis its a dull ache in the left side of his chest is not ripping or tearing not sudden onset no shortness of breath no recent travel no recent immobilization no history of blood clots no exogenous estrogen he notes exercising regularly with no difficulty. Finally he notes bloody stools for approximately 1 year he notes 2 times a week he will have sometimes blood in his toilet bowl or sometimes blood coating his stool denies any lightheadedness or dizziness denies any pain he has never seen anyone about it. Historical: - Allergies: 13:20 Benadryl; hb - Immunization history:: Adult Immunizations up to date. - Social history:: Smoking status: Patient denies any tobacco usage or history of. ROS: 13:24 Constitutional: Negative for fever, chills bs3 13:24 All other systems are negative. Exam: 13:24 Constitutional: This is a well developed, well nourished patient who is awake, alert, bs3 and in no acute distress. Head/Face: Normocephalic, atraumatic. Eyes: Pupils equal round and reactive to light, extra-ocular motions intact. Lids and lashes normal. ENT: mmm, no posterior phyarngeal erythema Neck: Trachea midline, no thyromegaly, no neck stiffness Chest/axilla: Normal chest wall appearance and motion. Nontender with no deformity. No lesions are appreciated. Cardiovascular: Regular rate and rhythm with a normal S1 and S2. symmetric pulses in upper extremities Respiratory: Lungs have equal breath sounds bilaterally, clear to auscultation, no respiratory distress Abdomen/GI: Soft, non-tender, no rebound or guarding, rectal with no blood, no fissure, no hemorrhoid Skin: Warm, dry with normal turgor. Normal color with no rashes, no lesions, and no evidence of cellulitis. MS/ Extremity: Pulses equal, no cyanosis. Neurovascular intact. Full, normal range of motion. Neuro: Awake and alert, GCS 15, oriented to person, place, time, and situation. Cranial nerves II-XII grossly intact. Motor strength 5/5 in all extremities. Sensory grossly intact. Psych: Awake, alert, with orientation to person, place and time. Behavior, mood, and affect are within normal limits. 14:53 Inverted P wave in the 2, aVF no ST elevations or depressions T wave inversions in 2, bs3 aVF Vital Signs: 13:18 BP 127 / 93; Pulse 67; Resp 16; Temp 97.3; Pulse Ox 98% on R/A; Weight 106.59 kg; hb Height 6 ft. 0 in. ; Pain 8/10; 13:18 Body Mass Index 31.87 (106.59 kg, 182.88 cm) hb 13:18 Pain Scale: Adult hb MDM: 13:16 Patient medically screened. bs3 13:24 Data reviewed: vital signs, nurses notes. ED course: Patient with likely trigger finger bs3 of his third digit on the right side recommended outpatient follow-up, melissa jefferson, his chest pain is atypical it is been going on for months we will get an EKG and chest x-ray he has no murmur on exam its not exertional and not consistent with acute coronary syndrome or unstable angina, there is a broad differential for chronic rectal bleeding possible fissure versus hemorrhoid versus polyp/cancer will rule out anemia advised outpatient primary care and GI follow-up. 14:19 ED course: hgb normal, advised gi f/u. bs3 14:53 ED course: PERC negative, advised outpatient cardiology, gi, and hand f/u. bs3 12/20 13:24 Order name: EKG - Nurse/Tech; Complete Time: 14:09 bs3 12/20 13:24 Order name: CBC w/o diff; Complete Time: 14:19 bs3 12/20 13:24 Order name: XRAY Chest (1 view); Complete Time: 14:52 bs3 Administered Medications: No medications were administered Disposition Summary: 12/20/22 14:54 Discharge Ordered Location: Home bs3 Condition: Stable bs3 Diagnosis - Chest pain, unspecified bs3 - GI Bleed/ Gastrointestinal hemorrhage, unspecified bs3 - Pain in right finger(s) bs3 Followup: bs3 - With: Private Physician - When: 1 week - Reason: Re-evaluation by your physician Forms: - Medication Reconciliation Form bs3 - Thank You Letter bs3 - Antibiotic Education bs3 - Prescription Opioid Use bs3 Signatures: Dispatcher [employer] EDMS Antoinette Vance RN RN hb Stein, Brandon, MD MD bs3 Corrections: (The following items were deleted from the chart) 14:16 13:24 Constitutional: This is a well developed, well nourished patient who is awake, bs3 alert, and in no acute distress. Head/Face: Normocephalic, atraumatic. Eyes: Pupils equal round and reactive to light, extra-ocular motions intact. Lids and lashes normal. ENT: mmm, no posterior phyarngeal erythema Neck: Trachea midline, no thyromegaly, no neck stiffness Chest/axilla: Normal chest wall appearance and motion. Nontender with no deformity. No lesions are appreciated. Cardiovascular: Regular rate and rhythm with a normal S1 and S2. symmetric pulses in upper extremities Respiratory: Lungs have equal breath sounds bilaterally, clear to auscultation, no respiratory distress Skin: Warm, dry with normal turgor. Normal color with no rashes, no lesions, and no evidence of cellulitis. MS/ Extremity: Pulses equal, no cyanosis. Neurovascular intact. Full, normal range of motion. Neuro: Awake and alert, GCS 15, oriented to person, place, time, and situation. Cranial nerves II-XII grossly intact. Motor strength 5/5 in all extremities. Sensory grossly intact. Psych: Awake, alert, with orientation to person, place and time. Behavior, mood, and affect are within normal limits. bs3
--- NOTE | 2022-12-20 14:55 | ER ---
Nurse's Notes [facility] Name: Bryan Tejeda Jr Age: 32 yrs Sex: Male : 1990 Arrival Date: 12/20/2022 Time: 13:10 Bed 15 Private MD: Diagnosis: Chest pain, unspecified;GI Bleed/ Gastrointestinal hemorrhage, unspecified;Pain in right finger(s) Presentation: 12/20 13:18 Chief complaint: Bright red blood in stool x 6 months, light hand pain x 1 month, and hb left sided chest pain x 2 weeks. Coronavirus screen: At this time, the client does not indicate any symptoms associated with coronavirus-19. Ebola Screen: No symptoms or risks identified at this time. Initial Sepsis Screen: Does the patient meet any 2 criteria? No. Patient's initial sepsis screen is negative. Does the patient have a suspected source of infection? No. Patient's initial sepsis screen is negative. Risk Assessment: Do you want to hurt yourself or someone else? Patient reports no desire to harm self or others. Onset of symptoms was May 2023. 13:18 Method Of Arrival: Ambulatory hb 13:18 Acuity: OMAR 3 hb Historical: - Allergies: 13:20 Benadryl; hb - Immunization history:: Adult Immunizations up to date. - Social history:: Smoking status: Patient denies any tobacco usage or history of. Screenin:45 [facility] ED Fall Risk Assessment (Adult) Score/Fall Risk Level 0 - 2 = Low Risk. Abuse eh3 screen: Denies threats or abuse. Denies injuries from another. Nutritional screening: No deficits noted. Tuberculosis screening: No symptoms or risk factors identified. Assessment: 13:45 General: Appears in no apparent distress. uncomfortable, Behavior is calm, cooperative, eh3 appropriate for age. Pain: Complains of pain in chest and right hand Pain does not radiate. Pain currently is 9 out of 10 on a pain scale. Quality of pain is described as aching, sharp, Pain began 2 months ago Is intermittent. Neuro: Level of Consciousness is awake, alert, obeys commands, Oriented to person, place, time, situation. Cardiovascular: Capillary refill < 3 seconds Patient's skin is warm and dry. Respiratory: Airway is patent Respiratory effort is even, unlabored, Respiratory pattern is regular, symmetrical. GI: Abdomen is round non-distended. : No signs and/or symptoms were reported regarding the genitourinary system. EENT: No signs and/or symptoms were reported regarding the EENT system. Derm: Skin is pink, warm \T\ dry. Musculoskeletal: Circulation, motion, and sensation intact. Range of motion: limited in DIP of right middle finger, PIP of right middle finger and MCP of right middle finger. Vital Signs: 13:18 BP 127 / 93; Pulse 67; Resp 16; Temp 97.3; Pulse Ox 98% on R/A; Weight 106.59 kg; hb Height 6 ft. 0 in. ; Pain 8/10; 13:18 Body Mass Index 31.87 (106.59 kg, 182.88 cm) hb 13:18 Pain Scale: Adult hb ED Course: 13:10 Patient arrived in ED. rg4 13:16 Tyrone Morocho MD is Attending Physician. bs3 13:20 Triage completed. hb 13:20 Arm band placed on left wrist. hb 13:28 Stephanie Nolan RN is Primary Nurse. eh3 13:45 Patient has correct armband on for positive identification. Bed in low position. Call eh3 light in reach. Side rails up X2. Adult w/ patient. Client placed on continuous cardiac and pulse oximetry monitoring. NIBP monitoring applied. Door closed. Noise minimized. Lights dimmed. 13:49 CBC w/o diff Sent. eh3 13:49 Inserted saline lock: 20 gauge in right forearm, using aseptic technique. Blood eh3 collected. 14:02 XRAY Chest (1 view) In Process Unspecified. EDMS Administered Medications: No medications were administered Outcome: 14:54 Discharge ordered by . bs3 Signatures: Dispatcher [employer] EDMS Antoinette Vance RN RN hb Garcia, Rubi rg4 Stephanie Nolan RN RN 3 Tyrone Morocho MD MD bs3
[2022-12-20 19:38] VITALS: TEMP 97.3
[2022-12-20 19:40] VITALS: BP 133/85; O2SAT 97
--- NOTE | 2022-12-21 13:22 | EKG ---
Test Date: 2022-12-20 Test Time: 14:28:50 [employer]: ANDRADE MEASUREMENT RESULTS: Intervals: Rate: 60 ID: [id number] QRSD: 100 QT: 386 QTc: 386 [place]: P: 226 ID: [id number] QRS: 212 T: 265 INTERPRETIVE STATEMENTS: Unusual P axis, possible ectopic atrial rhythm Right superior axis deviation Inferior infarct, age undetermined Abnormal ECG Compared to ECG 06/29/2020 00:48:26 Right superior axis now present Myocardial infarct finding now present Sinus rhythm no longer present Electronically Signed On 12-21-22 13:19:58 CDT by Rachid Wright
== END 2022-12-20 15:23 | disposition home or self-care (01) ==
LOC: ER 13:06
DX: R07.89 Other chest pain (principal); K92.2 Gastrointestinal hemorrhage, unspecified; M79.644 Pain in right finger(s); Z88.8 Allergy status to other drugs, medicaments and biological substances
CPT/HCPCS: 36415; 71045; 85027; 93005; 99284